=== PATIENT | female | born 1935 | race Caucasian/White ===

== ENCOUNTER 2024-02-02 15:00 | Emergency (ER) | payer MEDICARE, OTHER ==
[~2024-02-02] VITALS: Ht 160 cm; Wt 59.5 kg
[2024-02-02 15:13] VITALS: TEMP 97.4
[2024-02-02 15:51] LABS: BASO # 0.1 K/mm3 (0.0-0.2); BASO % 0.8 % (0.0-2.0); EOS # 0.4 K/mm3 (0.0-0.7); EOS % 4.6 % (0.0-4.0); GRAN # 4.5 K/mm3 (1.4-6.5); GRAN % 57.9 % (42.2-75.2); HEMATOCRIT 42.2 % (37.0-47.0); HEMOGLOBIN 13.8 g/dl (12.5-16.0); LYMPH # 2.3 K/mm3 (1.2-3.4); LYMPH % 29.2 % (20.0-51.0); MEAN CELL VOLUME 99 fl (80.0-100.0); MEAN CORPUSCULAR HEMOGLOBIN 32 pg (27-31); MEAN CORPUSCULAR HGB CONC 33 g/dl (33.0-37.0); MEAN PLATELET VOLUME 11.8 fl (7.4-10.4); MONO # 0.6 K/mm3 (0.1-0.6); MONO % 7.2 % (1.7-9.3); PLATELET COUNT 229 K/mm3 (130-400); RED BLOOD COUNT 4.27 M/mm3 (4.10-5.30); REDCELL DISTRIBUTION WIDTH-CV 13.3 % (11.5-14.5)
[2024-02-02 16:26] LABS: ALBUMIN 3.7 g/dL (3.4-4.8); BILIRUBIN,TOTAL 0.5 mg/dL (0.2-1.2); CALCIUM 9.8 mg/dL (8.4-10.2); CREATININE, serum 1.62 mg/dL (0.57-1.11); MAGNESIUM 2.1 mg/dL (1.6-2.6); POTASSIUM 4.5 mEq/L (3.5-4.5)
[2024-02-02] MEDS ORDERED: NORVASC 5MG5 MG/TAB (16:27)
[2024-02-02] MEDS ORDERED: SYNTHROID0.075 MG/T (16:27)
[2024-02-02] MEDS ORDERED: XARELTO15 MG (16:27)
[2024-02-02] MEDS ORDERED: LIPITOR 10MG10 MG (16:28)
[2024-02-02 16:46] LABS: TROPONIN-I 0.021 ng/mL (0.00-0.033); TSH w REFLEX 2.707 uIU/mL (0.350-4.940)
[2024-02-02 17:39] LABS: PH 6.5 (5.0-8.5); URINE APPEARANCE CLEAR (CLEAR/HAZY); URINE BLOOD NEGATIVE (NEGATIVE); URINE COLOR YELLOW (YELLOW); URINE GLUCOSE NEGATIVE (NEGATIVE); URINE KETONE NEGATIVE (NEGATIVE); URINE NITRATE NEGATIVE (NEGATIVE); URINE PROTEIN(semi-quant) NEGATIVE (NEGATIVE); URINE UROBILINOGEN 0.2 E.U/dL (0.2-1.0)
[2024-02-02 18:04] LABS: COLLECTION METHOD CLEAN CATCH
[2024-02-02] MEDS ORDERED: Cephalexin 500 MG CAP PO ONE (18:15)
[2024-02-02] MEDS ORDERED: CEPHALEXIN500 M1 PO (18:16)
[2024-02-02 18:37] VITALS: BP 156/55; PULSE 70
== END 2024-02-02 18:32 | disposition home or self-care (01) ==
LOC: COL.ER 15:00
PROVIDERS: Emergency Medicine
DX: R06.02 Shortness of breath (principal); N39.0 Urinary tract infection, site not specified; I48.91 Unspecified atrial fibrillation; Z79.01 Long term (current) use of anticoagulants